=== PATIENT | female | born 1990 | race Caucasian/White ===

== ENCOUNTER 2017-11-18 09:33 | Day surgery (SDC) | payer MEDICAID ==
[2017-11-11 14:47] LABS: HCG SERUM QL NEGATIVE
[2017-11-18] VITALS (19 sets, daily range): BP systolic 98–127; BP diastolic 59–79
[~2017-11-18] VITALS: Ht 162.6 cm; Wt 116.2 kg
[~2017-11-18 09:33] MED LIST: BUPIVAcaine/PF 2.5 mg/ml (0.25%) 30ml vial ONE; Cefazolin 2GM/100ML NS IVPB IV ONE; GABA-532 PO; OMEP20TA5 PO; famotidine 20mg tablet PO ONE; ringers solution, lacted 1,000 ML IV SCH
[2017-11-18] MEDS ORDERED: ringers solution, lacted 1,000 ML IV SCH (11:24)
[2017-11-18] MEDS ORDERED: hydrALAZINE 20mg/ml inj. IV PRN (11:25)
[2017-11-18] MEDS ORDERED: labetalol 20mg/4ml (5mg/ml) syringe IV PRN (11:25)
[2017-11-18] MEDS ORDERED: ondansetron/PF 4mg/2ml inj IV PRN (11:25)
[2017-11-18] MEDS ORDERED: morphine 4 MG/ML inj SYRINge IV PRN ×2 (11:25)
[2017-11-18] MEDS ORDERED: fentaNYL/PF 50MCG/1 ML 2ML syringe IV PRN ×2 (11:25)
[2017-11-18] MEDS ORDERED: LIDOcaine 0.5% (5mg/ml) 50ml vial ONE (11:27)
[2017-11-18] MEDS ORDERED: propofol inj 20 ML IV ONE (11:31)
[2017-11-18] MEDS ORDERED: LIDOcaine 2% (20mg/ml) 5ml vial ONE (11:31)
[2017-11-18] MEDS ORDERED: ondansetron/PF 4mg/2ml inj ONE (12:00)
[2017-11-18] MEDS ORDERED: sevoflurane 250ml liquid IH ONE (12:00)
[2017-11-18] MEDS ORDERED: morphine 10mg/ml inj. ONE (12:48)
[2017-11-18] MEDS ORDERED: MIDAZolam 5mg/5ml vial ONE (12:48)
[2017-11-18] MEDS ORDERED: BUPIVAcaine/PF 2.5 mg/ml (0.25%) 30ml vial IJ ONE (13:02)
[2017-11-18] MEDS ORDERED: dexamethasone sod phosphate 4mg/ml inj. ONE (13:09)
[2017-11-18] MEDS ORDERED: proCHLORperazine 10 MG/2 ml inj IV ONE (14:35)
== END 2017-11-18 16:16 | disposition home or self-care (01) ==
LOC: PAS 09:33
PROVIDERS: ATTEND Orthopaedic Surgery Hand Surgery
DX: G56.02 Carpal tunnel syndrome, left upper limb (principal); M25.532 Pain in left wrist; G89.29 Other chronic pain; J45.909 Unspecified asthma, uncomplicated; G43.909 Migraine, unspecified, not intractable, without status migrainosus; F41.8 Other specified anxiety disorders; Z79.899 Other long term (current) drug therapy; Z88.1 Allergy status to other antibiotic agents; Z88.8 Allergy status to other drugs, medicaments and biological substances; Z72.89 Other problems related to lifestyle
CPT/HCPCS: 29846; 36415; 64721; 71045; 84703; 93005; A6222; A6257; A6258; A6449; J0690; J0780; J1100; J2001; J2250; J2270; J2405; J2704; J3490; J7120; A7000